=== PATIENT | male | born 1960 | race Caucasian/White ===

== ENCOUNTER 2017-05-09 17:20 | Emergency (ER) | payer MEDICARE, MEDICAID ==
[~2017-05-09] VITALS: Ht 170.2 cm; Wt 65.8 kg
[2017-05-09 17:46] LABS: BASOPHILS # (AUTO) 0.1 K/uL (0.0-8.0); EOSINOPHILS % (AUTO) 12.6 % (0.0-7.0); HEMATOCRIT 41.8 % (40-50); HEMOGLOBIN 13.6 G/DL (14.0-18.0); LYMPHOCYTES # (AUTO) 2.1 K/UL (0.8-4.8); LYMPHOCYTES % (AUTO) 25.8 % (20.5-51.5); MEAN CORPUSCULAR HEMOGLOBIN 31.7 UUG (27.0-31.0); MEAN CORPUSCULAR HGB CONC 33 g/dL (32.0-37.0); MEAN CORPUSCULAR VOLUME 97.2 FL (82.0-92.0); MONOCYTES # (AUTO) 0.7 K/UL (0.1-1.30); NEUTROPHILS # (AUTO) 4.3 K/UL (1.8-8.9); NEUTROPHILS % (AUTO) 51.6 % (38.5-71.5); PLATELET COUNT (AUTO) 218 K/UL (150-450); WHITE BLOOD COUNT (AUTO) 8.2 K/UL (4.0-11.2)
[2017-05-09 17:51] LABS: CARBON DIOXIDE 28 mmol/L (21-32); CHLORIDE 101 mmol/L (98-107); CREATININE 0.6 mg/dL (0.6-1.3); GLUCOSE 87 mg/dL (74-106); UREA NITROGEN, BLOOD 15 mg/dL (7-18)
--- NOTE | 2017-05-09 17:55 | NUR ---
PT IS IN ROOM #2B. DR TAVERA EVALUATED THE PT.
[2017-05-09] MEDS ORDERED: AMIN30LI2 GT (17:59)
[2017-05-09] MEDS ORDERED: MULT1TAB11 GT (17:59)
[2017-05-09] MEDS ORDERED: SENN-167 GT (17:59)
[2017-05-09] MEDS ORDERED: OLAN10TA3 GT (17:59)
[2017-05-09] MEDS ORDERED: LEVE100S GT (17:59)
[2017-05-09] MEDS ORDERED: NAPROSYN GT (17:59)
[2017-05-09] MEDS ORDERED: LACT10SO7 GT (17:59)
[2017-05-09] MEDS ORDERED: GABA-536 PO (17:59)
[2017-05-09 18:03] LABS: ALANINE AMINOTRANSFERASE 27 U/L (16-63); ALKALINE PHOSPHATASE 98 U/L (50-136); ASPARTATE AMINOTRANSFERASE 23 U/L (15-37); BILIRUBIN,DIRECT 0.1 mg/dL (0.0-0.2); BILIRUBIN,TOTAL 0.3 mg/dL (0.2-1.0); TOTAL PROTEIN, SERUM 6.7 g/dL (6.4-8.2)
[2017-05-09] MEDS: IV NORMAL SALINE 500 ML BAG IV ONE (18:40)
--- NOTE | 2017-05-09 18:40 | NUR ---
DR [facility]ERA [facility] PT IS GOING TO BE D/C BACK TO HIS FACILITY VIA [facility]. [facility] CALLED. LORE[place] IS 1 HOUR. PT IS RESTING IN BED COMFORTABLY. NO S/S OF ACUTE DISTRESS AT THIS TIME.
[2017-05-09 20:02] VITALS: BP 101/80
== END 2017-05-09 20:04 | disposition home or self-care (01) ==
LOC: ER 17:20
DX: J40 Bronchitis, not specified as acute or chronic (principal); R00.0 Tachycardia, unspecified; G40.909 Epilepsy, unspecified, not intractable, without status epilepticus; G62.9 Polyneuropathy, unspecified; I70.0 Atherosclerosis of aorta; R79.89 Other specified abnormal findings of blood chemistry; Z86.73 Personal history of transient ischemic attack (TIA), and cerebral infarction without residual deficits; G80.9 Cerebral palsy, unspecified; Z88.6 Allergy status to analgesic agent
CPT/HCPCS: 36415; 70030-TC; 71010; 83605; 85025; 85730; 87040; 93005; A4663